=== PATIENT | male | born 1995 | race Caucasian/White ===

== ENCOUNTER 2016-08-14 06:36 | Emergency (ER) | payer OTHER ==
[~2016-08-14] VITALS: Ht 175.3 cm; Wt 64.6 kg
[2016-08-14 06:38] VITALS: TEMP 36.4; Ht 175.3 cm; Wt 64.6 kg
[2016-08-14] MEDS ORDERED: SODIUM CHLORIDE 0.9% 1000ML 1,000 ML IV ONE (06:52)
[2016-08-14] MEDS ORDERED: SODIUM CHLORIDE 0.9% 1000ML 1,000 ML IV STA (06:52)
--- NOTE | 2016-08-14 06:59 | EMERGENCY ROOM VISIT NOTE ---
History Report prepared by Carolyne: Italo Chandra Under the Supervision of: Dr. Tom Watson M.D. First contact with patient: 06:44 Chief Complaint: ABDOMINAL PAIN Stated Complaint: CHEST PAIN,GASTRO INTEST DISCOMFORT,HARD TO BREATH History of Present Illness The patient is a 20 year old male who presents to the Emergency Room with complaints of resolving abdominal pain that started around 7 hours ago. He says that he had a GI bug the night before last, and his symptoms consisted on vomiting and diarrhea. By yesterday afternoon, the patient's symptoms were beginning to clear up. However, around 7 hours ago, the patient says his chest locked up and he could barely breathe. He felt a lot of gas and he had abdominal pain. The patient says he sat on the toilet for the next 4 hours, but he still felt badly. The patient got Pepto Bismol, which helped for 30 to 45 minutes, but then the abdominal pain came back so badly that he could barely breathe again. The patient took another dosage of Pepto Bismol around an hour ago, and his abdominal pain then cleared up as walking into the ER. The patient did vomit twice when walking to his car this morning. He denies any pain radiating to other areas, including his back and arms. He also denies any trauma. The patient has activity-induced asthma. He takes no medications. He has not had any surgeries. The patient smokes and drinks occasional alcohol. He is a student. Source of History: patient Onset: Around 7 hours ago Position: abdomen Symptom Intensity: so bad that he could barely breathe Timing: other (resolving) Associated Symptoms: + diarrhea (has now resolved), + vomiting, No back pain Note: Associated symptoms: Chest locked up when symptoms came on, could hardly breathe. Denies any arm pain. Review of Systems See HPI for pertinent positives & negatives. A total of 10 systems reviewed and were otherwise negative. Past Medical & Surgical Medical Problems: (1) Asthma Old medical records were reviewed. Nurse's notes were reviewed and I agree with. Family History No significant family history Social History Smoking Status: Current Every Day Smoker Alcohol Use: occasionally Housing Status: lives with roommate Occupation Status: [employer] student Current/Historical Medications No Active Prescriptions or Reported Meds Allergies Coded Allergies: Penicillins (Verified Allergy, Unknown, Hives, 08/14/16) Physical Exam Vital Signs Date Time Temp Pulse Resp B/P Pulse Ox O2 Delivery O2 Flow Rate FiO2 08/14/16 09:18 83 16 111/74 99 08/14/16 08:03 75 18 106/66 99 Room Air 08/14/16 06:38 36.4 95 16 121/78 100 Room Air Physical Exam General: Well developed well nourished non-ill appearing young male in no acute distress, breathing comfortably on room air. Normal speech HEENT: Normal cephalic atraumatic. Pupils are equal round and reactive to light. Sclerae anicteric. Extraocular movements are intact. Oropharynx is pink with moist mucous membranes. No swelling of the mouth lips or tongue. Neck: Supple with a midline trachea. No meningeal signs or stiffness, no JVD or bruits. No Stridor. Chest: Clear to auscultation bilaterally. No wheezes or rhonchi. No increased work of breathing. Heart: regular rate and rhythm. Abdomen: Soft nontender, nondistended without rebound guarding or rigidity. Extremities: No cyanosis clubbing or edema. No calf tenderness or assymetry Spine/Back. Non tender to palpation. No CVA tenderness Skin: Good turgor without rashes. Neurologic exam: Cranial nerves two through 12 are intact. Motor and sensation are intact and symmetrical throughout. Medical Decision & Procedures ER Provider Diagnostic Interpretation: X ray results as stated below per my interpretation and radiologist interpretation. Other radiology results as stated below per my review and radiologist interpretation: SINGLE VIEW CHEST CLINICAL HISTORY: Atypical chest pain. FINDINGS: An AP, portable, upright chest radiograph is obtained. No prior studies are available for comparison at the time of dictation. The cardiomediastinal silhouette is unremarkable. The lungs and pleural spaces are clear. No pneumothorax is seen. The bony thorax is grossly intact. IMPRESSION: No active disease in the chest. Electronically signed by: Nic Tee M.D. 08/14/2016 7:24 AM Dictated Date/Time: 08/14/2016 7:[address] ANGIOGRAM OF THE CHEST CLINICAL HISTORY: ATYPICAL CHEST PAIN COMPARISON STUDY: Chest x-ray dated August 14, 2016 TECHNIQUE: Following the IV administration of 119 mL of Optiray-320, CT angiogram of the thorax was performed from the thoracic inlet to the lung bases utilizing the pulmonary embolus protocol. Images are reviewed in the axial, sagittal, and coronal planes. IV contrast was administered without complication. MIP imaging was performed. CT DOSE: 543.81 mGy.cm FINDINGS: No pathologically enlarged axillary mediastinal or hilar lymph nodes were visualized. There was no evidence of thoracic aortic dilatation. There were no pulmonary artery filling defects to indicate acute pulmonary embolism. No pleural effusions are visualized. There was no evidence of focal pulmonary consolidation. There is a 3 mm right midlung zone pulmonary nodule as visualized in image #[id number]. This is of doubtful clinical significance given the patient's young age. A definite minor fissure is not visualized. IMPRESSION: 1. No CT evidence of acute pulmonary embolism 2. No evidence of focal pulmonary consolidation 3. No evidence of pathologic adenopathy Electronically signed by: Andrew Saldivar M.D. 08/14/2016 8:52 AM Dictated Date/Time: 08/14/2016 8:[address] SCAN OF THE ABDOMEN AND PELVIS WITH IV CONTRAST CLINICAL HISTORY: Right-sided abdominal pain. COMPARISON STUDY: No priors. TECHNIQUE: Following the IV administration of 119 cc of Optiray 320, CT scan of the abdomen and pelvis is performed from the lung bases to the proximal femora. Images are reviewed in the axial, sagittal, and coronal planes. IV contrast was administered without complication. Automated dose control exposure was utilized. FINDINGS: Lung bases: The heart is normal in size and without pericardial effusion. The lung bases are clear. Liver: The contrast-enhanced liver is normal in size, contour, and attenuation. There is no intrahepatic biliary ductal dilatation. The hepatic veins and portal veins are patent. Gallbladder: Unremarkable. Spleen: Normal in size and attenuation. Pancreas: Unremarkable. Adrenal glands: Unremarkable. Kidneys: The contrast enhanced kidneys are normal in size and without hydronephrosis. The kidneys enhance symmetrically. Abdominal vasculature: The abdominal aorta is normal in course and caliber. Bowel: The small bowel and colon are normal in course and caliber. The appendix is not clearly identified. No inflammatory changes are seen in the right lower quadrant to suggest acute appendicitis. Peritoneum: There is no intraperitoneal free air or abdominal ascites. There is a small fat-containing umbilical hernia. Lymphadenopathy: None. Pelvic viscera: The bladder, prostate, and seminal vesicles are normal as visualized. Trace free fluid is identified in the pelvis. Skeletal structures: No lytic or blastic lesions are seen. There is a hemitransitional right lumbosacral segment. IMPRESSION: 1. There is trace free fluid in the pelvis. This is a nonspecific but abnormal finding in a male patient, possibly on a reactive basis. Clinical correlation will be required. 2. No additional infectious or inflammatory findings are seen. See discussion. Electronically signed by: Nic Tee M.D. 08/14/2016 8:56 AM Dictated Date/Time: 08/14/2016 8:45 AM Laboratory Results 08/14/16 07:00 Red Blood Count 5.14, Mean Corpuscular Volume 84.0, Mean Corpuscular Hemoglobin 30.2, Mean Corpuscular Hemoglobin Concent 35.9, Mean Platelet Volume 13.6, Neutrophils (%) (Auto) 86.1, Lymphocytes (%) (Auto) 5.6, Monocytes (%) (Auto) 7.5, Eosinophils (%) (Auto) 0.5, Basophils (%) (Auto) 0.1, Neutrophils # (Auto) 6.93, Lymphocytes # (Auto) 0.45, Monocytes # (Auto) 0.60, Eosinophils # (Auto) 0.04, Basophils # (Auto) 0.01 08/14/16 07:00 Test 08/14/16 07:00 08/14/16 07:05 White Blood Count 8.05 K/uL (4.8-10.8) Red Blood Count 5.14 M/uL (4.7-6.1) Hemoglobin 15.5 g/dL (14.0-18.0) Hematocrit 43.2 % (42-52) Mean Corpuscular Volume 84.0 fL (80-100) Mean Corpuscular Hemoglobin 30.2 pg (25-34) Mean Corpuscular Hemoglobin Concent 35.9 g/dl (32-36) Platelet Count 156 K/uL (130-400) Mean Platelet Volume 13.6 fL (7.4-10.4) Neutrophils (%) (Auto) 86.1 % Lymphocytes (%) (Auto) 5.6 % Monocytes (%) (Auto) 7.5 % Eosinophils (%) (Auto) 0.5 % Basophils (%) (Auto) 0.1 % Neutrophils # (Auto) 6.93 K/uL (1.4-6.5) Lymphocytes # (Auto) 0.45 K/uL (1.2-3.4) Monocytes # (Auto) 0.60 K/uL (0.11-0.59) Eosinophils # (Auto) 0.04 K/uL (0-0.5) Basophils # (Auto) 0.01 K/uL (0-0.2) RDW Standard Deviation 36.3 fL (36.4-46.3) RDW Coefficient of Variation 11.8 % (11.5-14.5) Immature Granulocyte % (Auto) 0.2 % Immature Granulocyte # (Auto) 0.02 K/uL (0.00-0.02) Anion Gap 8.0 mmol/L (3-11) Est Creatinine Clear Calc Drug Dose 106.8 ml/min Estimated GFR () 124.1 Estimated GFR (Non- 107.1 BUN/Creatinine Ratio 12.7 (10-20) Calcium Level 8.9 mg/dl (8.5-10.1) Total Bilirubin 1.1 mg/dl (0.2-1) Direct Bilirubin 0.5 mg/dl (0-0.2) Aspartate Amino Transf (AST/SGOT) 242 U/L (15-37) Alanine Aminotransferase (ALT/SGPT) 143 U/L (12-78) Alkaline Phosphatase 102 U/L (45-117) Total Protein 7.3 gm/dl (6.4-8.2) Albumin 4.1 gm/dl (3.4-5.0) Lipase 64 U/L (73-393) Bedside D-Dimer > 450 ng/mlFEU (0-450) Bedside Troponin I 0.000 ng/ml (0-0.045) Laboratory studies as stated above per my review. Medications Administered Medications (Trade) Dose Ordered Sig/Arian Route Start Time Stop Time Status Last Admin Dose Admin Sodium Chloride 1,000 ml @ 999 mls/hr Q1H1M STAT IV 08/14/16 06:52 08/14/16 07:52 DC 08/14/16 06:52 999 MLS/HR Sodium Chloride (Nss 1000ml) 1,000 ml @ 200 mls/hr Q5H ONCE IV 08/14/16 06:52 08/14/16 09:28 DC 08/14/16 06:52 200 MLS/HR ECG Indication: abdominal pain Rate (beats per minute): 88 Rhythm: normal sinus Findings: no acute ischemic change, other (incomplete RBBB) Comparison ECG Date: no prior available ED Course 0645: Past medical records reviewed. The patient was evaluated in room A3, and a complete history and physical examination were performed. 0652: Ordered NSS 1000 ml @ 200 mls/hr IV, NSS 1000 ml @ 999 mls/hr IV. 0705: I reevaluated the patient and he is looking much better and is no longer diaphoretic. His pain is down to a 4. 0751: I reevaluated the patient and he is resting comfortably. 0828: I reevaluated the patient and he has no more pain. I told him that we are ordering a CT scan. 0905: Upon reevaluation, the patient is resting comfortably. I discussed the results and treatment plan with him. He verbalized agreement of the treatment plan. The patient was discharged home. Medical Decision Differential diagnoses include: gastroenteritis, pneumothorax, arrhythmia, gallbladder disease, pancreatitis, electrolyte or metabolic abnormality. This patient comes in as described above. He was placed in room A3. He's had nausea vomiting diarrhea and viral type illness. He also noticed some chest pain yesterday looks well on exam is feeling a lot better as a central chest. IV access established and he was hydrated with IV normal saline. Chest x-ray, EKG, and multiple blood tests was obtained. He has nothing to suggest acute coronary syndrome or arrhythmia. He has nothing to suggest sepsis or infection is d-dimer was elevated and in light of this I did a chest CT also continues to the abdomen as his liver functions are mildly elevated. There is no evidence of PE and there is no intra-abdominal processes seen his mild elevation of LFTs may be from a viral illness. He looks well and wants to go home. I think is reasonable use ibuprofen for pain rest and drink plenty fluids. Return if: Worsening of symptoms, fever or chills, not tolerating fluids, any problems concerns. He was happy with the plan and discharged to home. Impression Primary Impression: Chest pain Additional Impression: Viral illness Scribe Attestation The scribe's documentation has been prepared under my direction and personally reviewed by me in its entirety. I confirm that the note above accurately reflects all work, treatment, procedures, and medical decision making performed by me. Departure Information Dispostion Home / Self-Care Prescriptions No Active Prescriptions or Reported Meds Referrals No Doctor, Assigned (PCP) [facility] Forms HOME CARE DOCUMENTATION FORM, IMPORTANT VISIT INFORMATION Patient Instructions My [facility] [place] [employer] Additional Instructions Rest. Drink plenty of fluids. May use ibuprofen 400 mg every 6 hours as needed or take with food Return if: Increasing pain, shortness of breath, fever chills, any problems concerns. Follow-up with your Dr. in 1-2 days for recheck. Problem Qualifiers
[2016-08-14 07:18] LABS: BASO % 0.1 %; BASO ABS # 0.01 K/uL (0-0.2); COMPLETE YES; EOS % 0.5 %; HEMATOCRIT 43.2 % (42-52); IG% 0.2 %; LYMPH % 5.6 %; LYMPH ABS # 0.45 K/uL (1.2-3.4); MEAN CORPUSCULAR HEMOGLOBIN 30.2 pg (25-34); MEAN CORPUSCULAR HGB CONC 35.9 g/dl (32-36); MEAN PLATELET VOLUME 13.6 fL (7.4-10.4); MONO % 7.5 %; NEUT % 86.1 %; PLATELET COUNT 156 K/uL (130-400); RED BLOOD COUNT 5.14 M/uL (4.7-6.1); WHITE BLOOD COUNT 8.05 K/uL (4.8-10.8)
--- NOTE | 2016-08-14 07:25 | DIAGNOSTIC IMAGING REPORT ---
SINGLE VIEW CHEST CLINICAL HISTORY: Atypical chest pain. FINDINGS: An AP, portable, upright chest radiograph is obtained. No prior studies are available for comparison at the time of dictation. The cardiomediastinal silhouette is unremarkable. The lungs and pleural spaces are clear. No pneumothorax is seen. The bony thorax is grossly intact. IMPRESSION: No active disease in the chest. Electronically signed by: Nic Tee M.D. 08/14/2016 7:24 AM Dictated Date/Time: 08/14/2016 7:24 AM
[2016-08-14 07:36] LABS: BUN/CREATININE RATIO 12.7 (10-20); CALCIUM 8.9 mg/dl (8.5-10.1); POTASSIUM 3.7 mmol/L (3.5-5.1)
--- NOTE | 2016-08-14 08:53 | DIAGNOSTIC IMAGING REPORT ---
CT ANGIOGRAM OF THE CHEST CLINICAL HISTORY: ATYPICAL CHEST PAIN COMPARISON STUDY: Chest x-ray dated August 14, 2016 TECHNIQUE: Following the IV administration of 119 mL of Optiray-320, CT angiogram of the thorax was performed from the thoracic inlet to the lung bases utilizing the pulmonary embolus protocol. Images are reviewed in the axial, sagittal, and coronal planes. IV contrast was administered without complication. MIP imaging was performed. CT DOSE: 543.81 mGy.cm FINDINGS: No pathologically enlarged axillary mediastinal or hilar lymph nodes were visualized. There was no evidence of thoracic aortic dilatation. There were no pulmonary artery filling defects to indicate acute pulmonary embolism. No pleural effusions are visualized. There was no evidence of focal pulmonary consolidation. There is a 3 mm right midlung zone pulmonary nodule as visualized in image #[id number]. This is of doubtful clinical significance given the patient's young age. A definite minor fissure is not visualized. IMPRESSION: 1. No CT evidence of acute pulmonary embolism 2. No evidence of focal pulmonary consolidation 3. No evidence of pathologic adenopathy Electronically signed by: Andrew Saldivar M.D. 08/14/2016 8:52 AM Dictated Date/Time: 08/14/2016 8:45 AM
--- NOTE | 2016-08-14 08:57 | DIAGNOSTIC IMAGING REPORT ---
CT SCAN OF THE ABDOMEN AND PELVIS WITH IV CONTRAST CLINICAL HISTORY: Right-sided abdominal pain. COMPARISON STUDY: No priors. TECHNIQUE: Following the IV administration of 119 cc of Optiray 320, CT scan of the abdomen and pelvis is performed from the lung bases to the proximal femora. Images are reviewed in the axial, sagittal, and coronal planes. IV contrast was administered without complication. Automated dose control exposure was utilized. FINDINGS: Lung bases: The heart is normal in size and without pericardial effusion. The lung bases are clear. Liver: The contrast-enhanced liver is normal in size, contour, and attenuation. There is no intrahepatic biliary ductal dilatation. The hepatic veins and portal veins are patent. Gallbladder: Unremarkable. Spleen: Normal in size and attenuation. Pancreas: Unremarkable. Adrenal glands: Unremarkable. Kidneys: The contrast enhanced kidneys are normal in size and without hydronephrosis. The kidneys enhance symmetrically. Abdominal vasculature: The abdominal aorta is normal in course and caliber. Bowel: The small bowel and colon are normal in course and caliber. The appendix is not clearly identified. No inflammatory changes are seen in the right lower quadrant to suggest acute appendicitis. Peritoneum: There is no intraperitoneal free air or abdominal ascites. There is a small fat-containing umbilical hernia. Lymphadenopathy: None. Pelvic viscera: The bladder, prostate, and seminal vesicles are normal as visualized. Trace free fluid is identified in the pelvis. Skeletal structures: No lytic or blastic lesions are seen. There is a hemitransitional right lumbosacral segment. IMPRESSION: 1. There is trace free fluid in the pelvis. This is a nonspecific but abnormal finding in a male patient, possibly on a reactive basis. Clinical correlation will be required. 2. No additional infectious or inflammatory findings are seen. See discussion. Electronically signed by: Nic Tee M.D. 08/14/2016 8:56 AM Dictated Date/Time: 08/14/2016 8:45 AM
[2016-08-14 09:18] VITALS: BP 111/74; PULSE 83; O2SAT 99
== END 2016-08-14 09:20 | disposition home or self-care (01) ==
LOC: C.EDB 06:38 → C.EDA 09:20
DX: R07.89 Other chest pain (principal); B34.9 Viral infection, unspecified; K42.9 Umbilical hernia without obstruction or gangrene; R91.1 Solitary pulmonary nodule; J45.909 Unspecified asthma, uncomplicated; F17.200 Nicotine dependence, unspecified, uncomplicated